=== PATIENT | female | born 1955 | race Caucasian/White ===

== ENCOUNTER 2017-07-13 20:18 | Emergency (ER) | payer BC ==
[~2017-07-13] VITALS: Ht 152.4 cm; Wt 60.0 kg
[2017-07-13 21:39] VITALS: BP 187/98; PULSE 113; RESP 20; TEMP 100.6; O2SAT 96
[2017-07-13] MEDS ORDERED: BEVA100P (22:37)
[2017-07-13] MEDS ORDERED: [UNRECOGNIZED DRUG - OTHER] (22:37)
--- NOTE | 2017-07-13 22:38 | PD ---
HPI Chief Complaint: Fever Time Seen by Provider: 22:27 Travel History International Travel<30 days: No Contact w/Intl Traveler<30days: No Traveled to known affect area: No History of Present Illness HPI Patient is a 61-year-old female who is coming in with a fever of 100.9 at home she is a chemotherapy patient and she was told by the covering attending Dr. Powers for Dr. Avila who is her oncologist to come to the ER to have blood work checked out to make sure there is no bacterial source of her fever. 2016 she had a septic episode source was never found but she was admitted she said for 5 days for sepsis. Her primary cancer was ovarian resected in 2013. She has had PET scan since that show no signs of uptake however she is being treated with chemo for elevated markers that show there is still continued growth. She is awake alert nontoxic nonseptic appearing she is mild redness to her skin diffuse she denies dysuria she denies cough she denies any source for any infection no diarrhea no vomiting no respiratory distress no shortness of breath she reports chronic nasal congestion so she does not think that is related to any viral infection. Doxil and Avastin of the drug she is getting now on this round of chemo PFSH Past Medical History Cancer: Yes ("OVARIAN") Cardiovascular Problems: Yes Chemotherapy: Yes Menopausal: Yes Past Surgical History Appendectomy: Yes Hysterectomy: Yes Other Surgery: Yes Social History Alcohol Use: Yes Tobacco Use: No Substance Use: No Allergies-Medications (Allergen,Severity, Reaction): Coded Allergies: No Known Allergies (Unverified , 07/13/17) Reported Meds & Prescriptions Reported Meds & Active Scripts Active Cipro (Ciprofloxacin HCl) 250 Mg Tab 750 Mg PO BID Reported [Doxyl] Avastin Inj (Bevacizumab) 25 Mg/Ml Inj Physical Exam Narrative GENERAL: pt has no hair and redness to face SKIN: Warm and dry. HEAD: Atraumatic. Normocephalic. EYES: Pupils equal and round. No scleral icterus. No injection or drainage. ENT: No nasal bleeding or discharge. Mucous membranes pink and moist. NECK: Trachea midline. No JVD. CARDIOVASCULAR: Regular rate and rhythm. Chemo Port in subclavian area RESPIRATORY: No accessory muscle use. Clear to auscultation. Breath sounds equal bilaterally. GASTROINTESTINAL: Abdomen soft, non-tender, nondistended. Hepatic and splenic margins not palpable. MUSCULOSKELETAL: Extremities without clubbing, cyanosis, or edema. No obvious deformities. NEUROLOGICAL: Awake and alert. No obvious cranial nerve deficits. Motor grossly within normal limits. Five out of 5 muscle strength in the arms and legs. Normal speech. PSYCHIATRIC: Appropriate mood and affect; insight and judgment normal. Data Data Last Documented VS Vital Signs Date Time Temp Pulse Resp B/P (MAP) Pulse Ox O2 Delivery O2 Flow Rate FiO2 07/13/17 22:34 109 20 100 Room Air 07/13/17 21:39 100.6 187/98 (127) Orders Orders Complete Blood Count With Diff (07/13/17 23:09) Comprehensive Metabolic Panel (07/13/17 23:09) Troponin I (07/13/17 23:09) Chest, Pa & Lat (07/13/17 23:09) Blood Culture (07/13/17 23:09) Lactic Acid (07/13/17 23:09) Urinalysis - C+S If Indicated (07/13/17 23:09) Ciprofloxacin (Cipro) (07/14/17 02:30) Ed Discharge Order (07/14/17 02:32) Heparin Central Flush (Heparin Central F (07/14/17 03:00) Labs Laboratory Tests Test 07/13/17 23:20 07/14/17 01:41 White Blood Count 9.1 TH/MM3 Red Blood Count 3.88 MIL/MM3 Hemoglobin 12.6 GM/DL Hematocrit 37.4 % Mean Corpuscular Volume 96.5 FL Mean Corpuscular Hemoglobin 32.6 PG Mean Corpuscular Hemoglobin Concent 33.8 % Red Cell Distribution Width 15.7 % Platelet Count 221 TH/MM3 Mean Platelet Volume 8.4 FL Neutrophils (%) (Auto) 74.3 % Lymphocytes (%) (Auto) 14.6 % Monocytes (%) (Auto) 9.9 % Eosinophils (%) (Auto) 0.7 % Basophils (%) (Auto) 0.5 % Neutrophils # (Auto) 6.8 TH/MM3 Lymphocytes # (Auto) 1.3 TH/MM3 Monocytes # (Auto) 0.9 TH/MM3 Eosinophils # (Auto) 0.1 TH/MM3 Basophils # (Auto) 0.0 TH/MM3 CBC Comment DIFF FINAL Differential Comment Blood Urea Nitrogen 12 MG/DL Creatinine 0.79 MG/DL Random Glucose 96 MG/DL Total Protein 7.7 GM/DL Albumin 3.4 GM/DL Calcium Level 9.7 MG/DL Alkaline Phosphatase 65 U/L Aspartate Amino Transf (AST/SGOT) 23 U/L Alanine Aminotransferase (ALT/SGPT) 21 U/L Total Bilirubin 0.5 MG/DL Sodium Level 136 MEQ/L Potassium Level 3.5 MEQ/L Chloride Level 101 MEQ/L Carbon Dioxide Level 24.6 MEQ/L Anion Gap 10 MEQ/L Estimat Glomerular Filtration Rate 74 ML/MIN Lactic Acid Level 0.8 mmol/L Troponin I LESS THAN 0.02 NG/ML Urine Color YELLOW Urine Turbidity CLEAR Urine pH 6.5 Urine Specific [place] 1.012 Urine Protein NEG mg/dL Urine Glucose (UA) NEG mg/dL Urine Ketones 10 mg/dL Urine Occult Blood SMALL Urine Nitrite NEG Urine Bilirubin NEG Urine Urobilinogen LESS THAN 2.0 MG/DL Urine Leukocyte Esterase TRACE Urine RBC 3 /hpf Urine WBC 2 /hpf Urine Squamous Epithelial Cells 1 /hpf Microscopic Urinalysis Comment CULT NOT INDICATED MDM Medical Decision Making Medical Screen Exam Complete: Yes Emergency Medical Condition: Yes Differential Diagnosis neutropenic fever vs viral illness vs UTI or PNA causing fever in Chemo pt Narrative Course Patient had a chest x-ray UA and labs white count is 9 on her serum UA has 2 white blood cells only with 1 squamous patient chest x-ray does not show any findings I discussed it with Dr. Farah he is covering for Dr. Avila of the oncology group. He feels Cipro twice daily is enough at this point and we give her 500 Cipro and discharge her with a prescription for 500 Cipro twice daily 7 days follow-up in the morning with the oncology group Diagnosis Primary Impression: Fever Qualified Codes: R50.9 - Fever, unspecified Patient Instructions: Fever in Adults (ED), General Instructions Scripts Ciprofloxacin (Cipro) 250 Mg Tab 750 MG PO BID for Infection, #10 TAB 0 Refills Prov: Rambo Funes MD 07/14/17 Disposition: 01 DISCHARGE HOME Condition: Good Rambo Funes MD Jul 13, 2017 22:38
[2017-07-13 23:29] LABS: AUTOMATED NEUTROPHIL # 6.8 TH/MM3 (1.8-7.7); BASOPHIL % 0.5 % (0.0-2.0); EOSINOPHIL # 0.1 TH/MM3 (0-0.4); EOSINOPHIL % 0.7 % (0.0-4.0); HEMATOCRIT 37.4 % (35.0-46.0); HEMOGLOBIN 12.6 GM/DL (11.6-15.3); LYMPH % 14.6 % (9.0-44.0); LYMPHOCYTE # 1.3 TH/MM3 (1.0-4.8); MEAN CELL VOLUME 96.5 FL (80.0-100.0); MEAN CORPUSCULAR HEMOGLOBIN 32.6 PG (27.0-34.0); MEAN CORPUSCULAR HGB CONC 33.8 % (32.0-36.0); MEAN PLATELET VOLUME 8.4 FL (7.0-11.0); MONO % 9.9 % (0.0-8.0); MONOCYTE # 0.9 TH/MM3 (0-0.9); NEUT % 74.3 % (16.0-70.0); PLATELET COUNT 221 TH/MM3 (150-450); RED BLOOD COUNT 3.88 MIL/MM3 (4.00-5.30); RED CELL DISTRIBUTION WIDTH 15.7 % (11.6-17.2); WHITE BLOOD COUNT 9.1 TH/MM3 (4.0-11.0)
[2017-07-13 23:55] LABS: ALBUMIN 3.4 GM/DL (3.4-5.0); AST (GOT) 23 U/L (15-37); BICARBONATE 24.6 MEQ/L (21.0-32.0); BLOOD UREA NITROGEN 12 MG/DL (7-18); CALCIUM 9.7 MG/DL (8.5-10.1); CHLORIDE 101 MEQ/L (98-107); CREATININE 0.79 MG/DL (0.50-1.00); GLOMERULAR FILTRATION RATE 74 ML/MIN (>89); GLUCOSE,RANDOM 96 MG/DL (74-106); SODIUM (NA) 136 MEQ/L (136-145)
[2017-07-13 23:56] LABS: ALT (GPT) 21 U/L (10-53)
[2017-07-14] LABS: ALKALINE PHOSPHATASE 65 U/L (45-117); TOTAL BILIRUBIN ADULT 0.5 MG/DL (0.2-1.0); TOTAL PROTEIN 7.7 GM/DL (6.4-8.2); TROPONIN I LESS THAN 0.02 NG/ML (0.02-0.05)
--- NOTE | 2017-07-14 00:18 | RADRPT ---
EXAM DATE/TIME: 07/14/2017 00:01 [facility] COMPARISON: No previous studies available for comparison. INDICATIONS : Fever. MEDICAL HISTORY : Carcinoma, ovarian. SURGICAL HISTORY : Port placement. ENCOUNTER: Initial ACUITY: 3 days PAIN SCORE: 3/10 LOCATION: Bilateral chest FINDINGS: PA and lateral views of the chest demonstrate the lungs to be symmetrically aerated without evidence of mass, infiltrate or effusion. The cardiomediastinal contours are unremarkable. Osseous structure s are intact. Port-A-Cath overlies the right chest. CONCLUSION: No acute disease. Travis Ruelas Jr., MD on July 14, 2017 at 0:16 Board Certified Radiologist. This report was verified electronically.
[2017-07-14 01:58] LABS: BILIRUBIN, URINE NEG (NEG); BLOOD, URINE SMALL (NEG); GLUCOSE,URINE NEG (NEG); KETONE, URINE 10 mg/dL (NEG); NITRITE,URINE NEG (NEG); PH, URINE 6.5 (5.0-8.5); SQUAMOUS EPITHELIAL CELL URINE 1 /hpf (0-5); URINE COLOR YELLOW (YELLW/STRAW); URINE LEUKOCYTE ESTERASE TRACE (NEG)
[2017-07-14] MEDS ORDERED: CIPROFLOXACIN 500 MG TAB PO ONE (02:30)
[2017-07-14] MEDS ORDERED: CIPR250T52 PO (02:31)
== END 2017-07-14 03:10 | disposition home or self-care (01) ==
LOC: NEPC 20:18
DX: R50.9 Fever, unspecified (principal); C56.9 Malignant neoplasm of unspecified ovary
CPT/HCPCS: 71046; 80053; 81001; 83605; 84484; 85025; 87040; 99284; J1642